=== PATIENT | male | born 1960 | race Asian ===

== ENCOUNTER 2023-07-07 23:09 | Emergency (ER) | payer BC ==
[~2023-07-07] VITALS: Ht 172.7 cm; Wt 81.6 kg
[2023-07-07 23:55] VITALS: BP_SYST 129; PULSE 70; RESP 16; TEMP 97.5; O2SAT 99
[2023-07-08 00:29] LABS: BASOPHILS % (AUTO) 0.1 % (0.0-2.0); EOSINOPHILS # (AUTO) 0.1 K/uL (0.0-0.4); HEMOGLOBIN 15.8 g/dL (14.0-18.0); LYMPHOCYTES # (AUTO) 0.9 K/uL (1.0-5.5); LYMPHOCYTES % (AUTO) 9.8 % (20.5-51.5); MEAN CORPUSCULAR HEMOGLOBIN 31 pg (27-31); MEAN CORPUSCULAR HGB CONC 34 % (32-36); MEAN CORPUSCULAR VOLUME 92 fL (79.0-98.0); MONOCYTES # (AUTO) 0.4 K/uL (0.0-1.0); MONOCYTES % (AUTO) 4.4 % (1.7-9.3); NEUTROPHILS # (AUTO) 7.9 K/uL (1.8-7.7); NEUTROPHILS % (AUTO) 84.7 % (40.0-70.0); PLATELET COUNT (AUTO) 242 K/uL (130-430); RED BLOOD CELL COUNT(AUTO) 5.11 MIL/uL (4.2-6.2); RED CELL DISTRIBUTION WIDTH 13.1 % (9.0-15.0); WHITE BLOOD COUNT (AUTO) 9.3 K/uL (4.8-10.8)
[2023-07-08 01:04] VITALS: TEMP 97.4
[2023-07-08 01:05] LABS: ANION GAP 10 (5-15); CALCIUM 9.7 mg/dL (8.4-11.0); CARBON DIOXIDE 29 mmol/L (23-29); CHLORIDE 104 mmol/L (98-107); CREATININE 1.09 mg/dL (0.55-1.30); GFR AFRICAN AMERICAN 88 mL/min (>90); GFR NON AFRICAN-AMERICAN 73 mL/min (>90); GLUCOSE 143 mg/dL (74-106); POTASSIUM 4.4 mmol/L (3.5-5.1); SODIUM SERUM 143 mmol/L (136-145); UREA NITROGEN, BLOOD 18 mg/dL (8-21)
[2023-07-08 01:12] LABS: ALANINE AMINOTRANSFERASE 40 U/L (12-78); ALBUMIN 4.3 g/dL (3.4-4.8); ASPARTATE AMINOTRANSFERASE 26 U/L (10-37); LIPASE 73 U/L (73-393); TOTAL BILIRUBIN 0.8 mg/dL (0.0-1.0); TOTAL PROTEIN, SERUM 8.3 g/dL (6.4-8.3)
[2023-07-08] MEDS ORDERED: MAG-AL HYDROX/SIMETH 30 ML UDC PO ONE (01:45)
[2023-07-08] MEDS ORDERED: ONDANSETRON 4 MG ODT TAB PO ONE (01:45)
[2023-07-08] MEDS ORDERED: CALC355O18 PO (02:30)
[2023-07-08] MEDS ORDERED: ONDA-8 TL (02:30)
[2023-07-08 02:46] VITALS: BP_SYST 140; PULSE 69; RESP 20; O2SAT 96
[2023-07-08] MEDS ORDERED: DOCU-144 PO (10:42)
== END 2023-07-08 02:46 | disposition home or self-care (01) ==
LOC: SED 23:09
DX: K29.70 Gastritis, unspecified, without bleeding (principal); K30 Functional dyspepsia; R11.10 Vomiting, unspecified; I10 Essential (primary) hypertension; Z79.899 Other long term (current) drug therapy
CPT/HCPCS: 99285; 80053; 83690; 85025; 84484; 36415; 71045; 93005; Q0162

== ENCOUNTER 2023-07-08 09:17 | Emergency (ER) | payer BC ==
[~2023-07-08] VITALS: Ht 172.7 cm; Wt 81.6 kg
[~2023-07-08 09:17] MED LIST: CALC355O18 PO; ONDA-8 TL
[2023-07-08 09:23] VITALS: BP_SYST 135; PULSE 79; RESP 18; TEMP 97.1; O2SAT 96
[2023-07-08] MEDS ORDERED: ONDANSETRON 4 MG ODT TAB PO ONE (09:45)
[2023-07-08 10:17] LABS: BASOPHILS % (AUTO) 0.1 % (0.0-2.0); HEMATOCRIT 48.1 % (36-54); HEMOGLOBIN 16.2 g/dL (14.0-18.0); LYMPHOCYTES # (AUTO) 0.8 K/uL (1.0-5.5); LYMPHOCYTES % (AUTO) 7.6 % (20.5-51.5); MEAN CORPUSCULAR HEMOGLOBIN 31 pg (27-31); MEAN CORPUSCULAR HGB CONC 34 % (32-36); MEAN CORPUSCULAR VOLUME 91 fL (79.0-98.0); MONOCYTES # (AUTO) 0.5 K/uL (0.0-1.0); MONOCYTES % (AUTO) 4.7 % (1.7-9.3); NEUTROPHILS # (AUTO) 9.1 K/uL (1.8-7.7); NEUTROPHILS % (AUTO) 87.6 % (40.0-70.0); PLATELET COUNT (AUTO) 266 K/uL (130-430); RED BLOOD CELL COUNT(AUTO) 5.26 MIL/uL (4.2-6.2); RED CELL DISTRIBUTION WIDTH 13.1 % (9.0-15.0); WHITE BLOOD COUNT (AUTO) 10.4 K/uL (4.8-10.8)
[2023-07-08 10:24] LABS: ALANINE AMINOTRANSFERASE 39 U/L (12-78); ALBUMIN 4.3 g/dL (3.4-4.8); ANION GAP 8 (5-15); ASPARTATE AMINOTRANSFERASE 26 U/L (10-37); CALCIUM 9.8 mg/dL (8.4-11.0); CARBON DIOXIDE 28 mmol/L (23-29); CHLORIDE 102 mmol/L (98-107); CREATININE 1.09 mg/dL (0.55-1.30); GFR AFRICAN AMERICAN 88 mL/min (>90); GLUCOSE 129 mg/dL (74-106); POTASSIUM 4.3 mmol/L (3.5-5.1); SODIUM SERUM 138 mmol/L (136-145); TOTAL BILIRUBIN 1.1 mg/dL (0.0-1.0); TOTAL PROTEIN, SERUM 8.3 g/dL (6.4-8.3); UREA NITROGEN, BLOOD 17 mg/dL (8-21)
[2023-07-08 10:29] LABS: GFR NON AFRICAN-AMERICAN 73 mL/min (>90)
[2023-07-08 10:34] LABS: AMYLASE 46 U/L (0-100); LIPASE 80 U/L (73-393)
[2023-07-08] MEDS ORDERED: DOCU-144 PO (10:42)
[2023-07-08 10:48] VITALS: BP_SYST 132; PULSE 74; RESP 18; TEMP 97.3; O2SAT 98
[2023-07-08 10:54] LABS: ACETONE, SERUM NEGATIVE (NEGATIVE)
[2023-07-08 11:32] LABS: BILIRUBIN,URINE 1+ (NEGATIVE); BLOOD, URINE NEGATIVE (NEGATIVE); CLARITY/URINE CLEAR (CLEAR); COLOR,URINE YELLOW (YELLOW); GLUCOSE,URINE NEGATIVE (NEGATIVE); KETONES,URINE 3+ (NEGATIVE); LEUKOCYTE ESTERASE ,URINE NEGATIVE (NEGATIVE); NITRITE, URINE NEGATIVE (NEGATIVE); PH,URINE 7.5 (5.0-8.0); PROTEIN URINE 3+ (NEGATIVE)
[2023-07-08 11:36] LABS: BACTERIA,URINE None Seen /HPF (None Seen); HYALINE CASTS, URINE 0-10 /LPF (None Seen); MUCUS,URINE 3+ /LPF (None Seen); RBC,URINE 0-3 /HPF (0-3); WBC,URINE 0-3 /HPF (0-3)
== END 2023-07-08 10:45 | disposition left against medical advice (07) ==
LOC: SED 09:17
DX: R10.32 Left lower quadrant pain (principal); R11.2 Nausea with vomiting, unspecified; R10.12 Left upper quadrant pain; I10 Essential (primary) hypertension; Z79.899 Other long term (current) drug therapy
CPT/HCPCS: 99284; 74176; 80053; 81000; 82009; 82150; 83690; 85025; 36415; 76376; 83605; 82397; Q0162